=== PATIENT | male | born 1955 | race Caucasian/White ===

== ENCOUNTER 2025-04-19 08:25 | Outpatient (CLI) | payer MEDICARE, MEDICAID ==
[~2025-04-19 08:25] MED LIST: LISI10TA27 PO; LORA-512 PO; PANT40TA54 PO; SERT-434 PO
--- NOTE | 2025-04-19 10:23 | RADIOLOGY REPORT ---
PROCEDURE: MRI OF THE BRAIN WITHOUT CONTRAST. CLINICAL INDICATION: OTHER AMNESIA TECHNIQUE: Multiplanar, multi sequence MRI of the brain was performed without intravenous contrast. COMPARISON: None FINDINGS: There is subcortical and periventricular T2/FLAIR hyperintensities, nonspecific but most likely relat ed to sequelae of chronic microvascular ischemic changes although other etiologies are not excluded. The signal characteristics of the brain parenchyma is otherwise within normal limits. There are no ar eas of restricted diffusion to suggest acute infarct. No evidence of space occupying mass lesion, ext ra-axial collections or hemorrhage is noted. The ventricles, sulci and basal cisterns are intact. The re is no signal abnormality in the posterior fossa. The mastoid air cells are well pneumatized. There is mucosal thickening in the bilateral maxillary si nuses. The orbits and nasopharynx are intact. The osseous structures are intact. The vessels of the skull base demonstrate signal void consistent with patency. IMPRESSION: 1. No acute intracranial abnormality. 2. Mild chronic microvascular ischemic changes.
== END 2025-04-19 23:59 | disposition home or self-care (01) ==
LOC: MRI02 08:25
PROVIDERS: ATTEND Neuromusculoskeletal Medicine & OMM
DX: I67.82 Cerebral ischemia (principal); R41.3 Other amnesia; J34.89 Other specified disorders of nose and nasal sinuses
CPT/HCPCS: 70551